=== PATIENT | female | born 1955 | race Caucasian/White ===

== ENCOUNTER 2020-11-15 18:14 | Inpatient (IN) | payer BC, OTHER ==
[~2020-11-15] VITALS: Ht 165.1 cm; Wt 95.0 kg
--- NOTE | 2020-11-15 18:20 | NUR ---
PT IS A 65F BIB EMS AFTER HAVING A SZ AT HOME WHILE COOKING DINNER. HER STATED SHE SAID "HELP ME", THEN FELL BACKWARDS AND STARTED SEIZING. SHE DOES NOT HAVE A HISTORY OF SEIZURES. SHE WAS 88% ON RA, PLACED ON 2L O2, NOW 95%. EMS PLACED A 20G IV IN THE RIGHT AC AND WAS GIVEN 4MG ZOFRAN EN ROUTE. ED PROVIDER AND SPOUSE AT BEDSIDE. CARDIAC, SP02, AND BP MONITORS IN PLACE. SZ PADS PLACED. PT DOES NOT REMEMBER THE EVENT OR ANY EVENTS EARLIER TODAY. CALL LIGHT WITHIN REACH.
--- NOTE | 2020-11-15 18:49 | NUR ---
REPORT TO MASON FRYE
[2020-11-15 18:59] LABS: BASOPHILS % (AUTO) 1 % (0-1); EOSINOPHILS % (AUTO) 2 % (1-7); LYMPHOCYTES % (AUTO) 15 % (22-44); MEAN CORPUSCULAR HEMOGLOBIN 29.5 pg (27.0-34.8); MEAN CORPUSCULAR HGB CONC 33.7 g/dL (32.4-35.8); MEAN PLATELET VOLUME 8.6 fL (7.4-10.4); MONOCYTES % (AUTO) 7 % (2-9); NEUTROPHILS % (AUTO) 76 % (42-75); PLATELET COUNT 188 x10^3/uL (130-400); RED BLOOD COUNT 4.31 x10^6/uL (3.82-5.3); RED CELL DISTRIBUTION WIDTH 14.3 % (9.6-15.2)
[2020-11-15 19:01] LABS: MD NO
[2020-11-15 19:09] LABS: ALANINE AMINOTRANSFERASE 30 U/L (12-78); ALBUMIN 3.2 g/dL (3.4-5.0); ANION GAP 6 mmol/L (5-15); CALCIUM 8.5 mg/dL (8.5-10.1); CHLORIDE 109 mmol/L (98-107); CREATININE 0.94 mg/dL (0.55-1.02); INTERNATIONAL NORMALIZED RATIO 0.95 (0.93-1.1); PROTHROMBIN TIME 10.2 Seconds (9.6-11.5)
[2020-11-15 19:13] LABS: ALKALINE PHOSPHATASE 62 U/L (45-117); BILIRUBIN,TOTAL 0.5 mg/dL (0.2-1.0); PARTIAL THROMBOPLASTIN TIME < 23 Seconds (25-31); TOTAL PROTEIN 6.5 g/dL (6.4-8.2); TROPONIN I < 0.015 ng/mL (0.000-0.045)
--- NOTE | 2020-11-15 20:10 | NUR ---
Pt back from CT. Now A&O x 3. C/O nausea. Pt with stable VS. Warm blanket given. at bedside. Will monitor.
[2020-11-15] MEDS ORDERED: ONDANSETRON 2MG/ML, 2ML ONE (20:16)
[2020-11-15] MEDS ORDERED: ONDANSETRON 2MG/ML, 2ML IVPush ONE (20:30)
[2020-11-15] MEDS ORDERED: LIDOCAINE-MPF 1%, 5ML ONE ×2 (20:58→22:41)
--- NOTE | 2020-11-15 22:07 | NUR ---
Pt states she feels fine. Pt ambulated to BR without difficulty. Pt stable on feet. No S/S/ Pt back to room and on monitor. Provider in room for LP.
[2020-11-15 23:31] LABS: GLUCOSE, CSF 64 mg/dL (40-80); TOTAL PROTEIN,CSF 26 mg/dL (15-45)
--- NOTE | 2020-11-15 23:56 | NUR ---
Pt tolerated LP well. Back in bed. Pt resting with no complaints. Pt NSR on monitor with no ectopy. Pt with no further sz activity. Pt remains A&O. Family at bedside. Will monitor.
[2020-11-16] MEDS ORDERED: LEVETIRACETAM 1,000 MG in SODIUM CHLORIDE 0.9% 100 ML IV ONE (00:30)
[2020-11-16] MEDS ORDERED: LORazepam 2 MG/ML, 1ML IV PRN (01:00)
[2020-11-16] MEDS ORDERED: LABETALOL 5MG/ML, 20ML IVPush PRN (01:00)
[2020-11-16] MEDS ORDERED: morphine SULFATE 10 MG/ML, 1ML IVPush PRN (01:00)
[2020-11-16] MEDS ORDERED: ONDANSETRON 2MG/ML, 2ML IVPush PRN (01:00)
[2020-11-16] MEDS ORDERED: CALC300T4 PO (01:28)
[2020-11-16] MEDS: SODIUM CHLORIDE 0.9% 1,000 ML IV SCH ×2 (01:44→14:14)
[2020-11-16 01:45] VITALS: BP 142/98
[2020-11-16 02:00] VITALS: BP 142/98
[2020-11-16 07:29] LABS: AMPHETAMINE SCREEN, URINE Negative (Negative); BARBITURATE SCREEN, URINE Negative (Negative); BENZODIAZEPINE SCREEN, URINE Negative (Negative); CANNABINOID SCREEN, URINE Negative (Negative); COCAINE SCREEN, URINE Negative (Negative); METHADONE SCREEN, URINE Negative (Negative); OPIATE SCREEN, URINE Negative (Negative)
[2020-11-16 08:30] VITALS: BP 145/88
[2020-11-16] MEDS: CALCIUM CARBONATE 500 MG TAB.CHEW PO PRN ×2 (08:51→10:55)
[2020-11-16] MEDS ORDERED: AMOXICILLIN/CLAV 875-125MG TABLET PO SCH (09:00)
[2020-11-16] MEDS ORDERED: LEVETIRACETAM 500 MG in SODIUM CHLORIDE 0.9% 100 ML IV SCH (12:00)
[2020-11-16] MEDS ORDERED: FAMOTIDINE 10 MG TAB PO SCH (12:30)
[2020-11-16 13:20] VITALS: BP 137/78
[2020-11-16] MEDS ORDERED: FAMOTIDINE 20 MG TABLET PO SCH ×3 (13:30→21:00)
== END 2020-11-16 17:39 | disposition home or self-care (01) | DRG 101 ==
LOC: ED 19:41 → EDIP 23:59 → 4WST 11-16 01:14
PROVIDERS: ADMIT Internal Medicine; ATTEND Internal Medicine
PROC: 009U3ZX Drainage of Spinal Canal, Percutaneous Approach, Diagnostic (ICD-10-PCS; principal; 2020-11-15)
DX: G40.409 Other generalized epilepsy and epileptic syndromes, not intractable, without status epilepticus (principal); D72.829 Elevated white blood cell count, unspecified; K04.7 Periapical abscess without sinus; Z79.899 Other long term (current) drug therapy; Z90.49 Acquired absence of other specified parts of digestive tract
CPT/HCPCS: 36415; 70450; 70551; 71045; 80053; 80307; 80320; 82550; 82945; 84157; 84484; 85025; 85610; 85730; 87070; 87205; 87252; 89051; 93005; 95819; 96374; 96375; 99285; J1953; J2405; G0480; J2270; J7030